=== PATIENT | female | born 1945 | race Caucasian/White ===

== ENCOUNTER 2017-03-05 10:02 | Day surgery (SDC) | payer OTHER ==
[~2017-03-05 10:02] MED LIST: Acetaminophen TAB* 325 MG PO PRN; Buffered Lidocaine 0.9% SYRIN* 5 ML/SYR SYRINGE INTRADERM ONE
[2017-03-05] MEDS ORDERED: Midazolam* 1 MG/ML 2 ML VIAL (2 MG) ONE (11:10)
[2017-03-05 11:39] VITALS: BP 116/54
--- NOTE | 2017-03-05 13:19 | OP ---
DATE OF OPERATION/DATE OF DICTATION: 03/05/2017. DATE OF : 1945. SURGEON: Dr. Everton Davis. ROOFING FOREMAN: None. ANESTHESIA: Topical with intravenous sedation. PRE-OP DIAGNOSIS: Cataract, left eye. POST-OP DIAGNOSIS: Cataract, left eye. OPERATIVE PROCEDURE: Phacoemulsification and cataract extraction with posterior chamber intraocular lens implant, left eye. COMPLICATIONS: None. BLOOD LOSS: None. OPERATIVE FINDINGS: The patient was brought to the operating room and received a small amount of int ravenous sedation. A drop of Tetracaine was placed in her left eye. She was prepped and draped in t he usual sterile fashion for ophthalmic surgery and attention was directed to the left eye where a sp eculum was placed. A paracentesis was created at the 5 o'clock position and 0.1 cc of 1 percent pres ervative-free Lidocaine was injected into the anterior chamber followed by DisCoVisc. The eye was di gitally stabilized while a 2.75 mm keratome was used to create a triplanar clear corneal incision at the 3 o'clock position. A continuous curvilinear capsulorrhexis was created with a cystotome and Utr nancy forceps. BSS on a cannula was used to hydrodissect the lens from the capsule. Phacoemulsificati on was performed in a [id number] technique to create four fragments which were removed. Resi dual cortical material was removed with irrigation and aspiration. DisCoVisc was used to inflate the capsular bag and an AUOOTO 19.5 diopter lens was folded and inserted into the capsular bag. DisCoVis c was removed using irrigation and aspiration. BSS on a cannula was used to hydrate the corneal stro ma and seal the wound. At the end of the case the pupil was round and the lens was centered. The eye was of normal pressure and the wound was water tight. The speculum was removed and topical Maxitrol ointment was placed on the surface of the eye. The eye was closed, patched and shielded and the pat ient was sent to the recovery room in stable condition with post operative instructions and follow-up appointment given. [id number]/[facility] #: [id number]
[2017-03-05] MEDS ORDERED: Neomycin/Polymy/Dex OPHTH.OIN* 3.5 GM ONE (15:03)
[2017-03-05] MEDS ORDERED: Tetracaine 0.5% OPTH.SOL 4 ML* 1 DROP BTL ONE (15:03)
[2017-03-05] MEDS ORDERED: Phenylephrine 2.5% OPTH.SOL* 2 ML BTL ONE (15:03)
[2017-03-05] MEDS ORDERED: Tropicamide 1% OPTH.SOL* BTL ONE (15:03)
[2017-03-05] MEDS ORDERED: Lidocaine 1% MPF* 2 ML VIAL ONE (15:03)
[2017-03-05] MEDS ORDERED: Ketorolac 0.5% OPHTH (NF) 0.5 % 5 ML BTL ONE (15:03)
[2017-03-05] MEDS ORDERED: Cyclopentolate 1% OPTH.SOL* 2 ML BTL ONE (15:03)
[2017-03-05] MEDS ORDERED: Buffered Lidocaine 0.9% SYRIN* 5 ML/SYR SYRINGE ONE (15:03)
== END 2017-03-05 11:24 | disposition home or self-care (01) ==
LOC: OREAST 10:02
PROVIDERS: ATTEND Ophthalmology
DX: H25.12 Age-related nuclear cataract, left eye (principal); E11.9 Type 2 diabetes mellitus without complications; Z79.84 Long term (current) use of oral hypoglycemic drugs; E78.5 Hyperlipidemia, unspecified; F33.9 Major depressive disorder, recurrent, unspecified; K21.9 Gastro-esophageal reflux disease without esophagitis; M19.90 Unspecified osteoarthritis, unspecified site
CPT/HCPCS: A9270-GY; J2250; V2632

== ENCOUNTER 2017-03-12 12:22 | Day surgery (SDC) | payer OTHER ==
[2017-03-12] MEDS ORDERED: Midazolam* 1 MG/ML 5 ML VIAL (5 MG) ONE (14:04)
[2017-03-12] MEDS ORDERED: fentaNYL* 50 MCG/ML 2 ML VIAL (100 MCG VIAL) ONE (14:04)
[2017-03-12 16:00] VITALS: BP 111/59
--- NOTE | 2017-03-12 16:46 | OP ---
DATE OF OPERATION/DATE OF DICTATION: 03/12/2017 - [facility] DATE OF : 1945. SURGEON: Dr. Everton Davis. DIRECTOR BUSINESS INTELLIGENCE: None. ANESTHESIOLOGIST: Jim Padilla MD ANESTHESIA: Topical with intravenous sedation. PRE-OP DIAGNOSIS: Cataract, right eye. POST-OP DIAGNOSIS: Cataract, right eye. OPERATIVE PROCEDURE: Phacoemulsification and cataract extraction with posterior chamber intraocular lens implant, right eye. COMPLICATIONS: None. BLOOD LOSS: None. DESCRIPTION OF PROCEDURE: The patient was brought to the operating room and received a small amount of intra-venous sedation. A drop of Tetracaine was placed in her right eye. She was prepped and draped in the usual sterile fashion for ophthalmic surgery and attention was directed to the right eye where a speculum was placed. A paracentesis was created at the 11 o'clock position and 0.1 cc of 1 percent preservative-free Lidocaine was injected into the anterior chamber followed by DisCoVisc. The eye was digitally stabilized while a 2.75 mm keratome was used to create a triplanar clear corneal incision at the 9 o'clock position. A continuous curvilinear capsulorrhexis was created with a cystotome and Utrata forceps. BSS on a cannula was used to hydrodissect the lens from the capsule. Phacoemulsification was performed in a divide-and- conquer technique to create four fragments which were removed. Residual cortical material was removed with irrigation and aspiration. DisCoVisc was used to inflate the capsular bag and an AUOOTO 21.0 diopter lens was folded and inserted into the capsular bag. DisCoVisc was removed using irrigation and aspiration. BSS on a cannula was used to hydrate the corneal stroma and seal the wound. At the end of the case the pupil was round and the lens was centered. The eye was of normal pressure and the wound was water tight. The speculum was removed and topical Maxitrol ointment was placed on the surface of the eye. The eye was closed, patched and shielded and the patient was sent to the recovery room in stable condition with post operative instructions and follow-up appointment given. [id number]/[facility] #: [id number] [facility] CENTERSheng
== END 2017-03-12 15:54 | disposition home or self-care (01) ==
LOC: OREAST 12:22
PROVIDERS: ATTEND Ophthalmology
DX: H25.11 Age-related nuclear cataract, right eye (principal); H40.9 Unspecified glaucoma; F33.9 Major depressive disorder, recurrent, unspecified; F41.1 Generalized anxiety disorder; K21.0 Gastro-esophageal reflux disease with esophagitis; E78.5 Hyperlipidemia, unspecified; R73.01 Impaired fasting glucose; Z79.82 Long term (current) use of aspirin; Z88.0 Allergy status to penicillin; Z88.8 Allergy status to other drugs, medicaments and biological substances; Z88.5 Allergy status to narcotic agent; Z88.2 Allergy status to sulfonamides; Z88.1 Allergy status to other antibiotic agents
CPT/HCPCS: J2250; J3010; V2632

== ENCOUNTER 2017-04-11 20:53 | Emergency (ER) | payer OTHER ==
--- NOTE | 2017-04-11 21:01 | UC ---
Laceration HPI - HPI Summary HPI Summary: 72 year old female presents with complains right wrist laceration. - History Of Current Complaint Stated Complaint: WRIST LACERATION Time Seen by Provider: 04/11/17 20:57 Hx Obtained From: Patient Laceration Location: Wrist - right Mechanism Of Injury: Sharp Trauma Onset/Duration: Sudden Onset Pain Scale Used: 0-10 Numeric - 5 - Allergies/Home Medications Allergies/Adverse Reactions: Allergies Allergy/AdvReac Type Severity Reaction Status Date / Time Adhesive Tape Allergy Rash Verified 04/11/17 21:00 Sulfa Antibiotics Allergy Rash Verified 03/12/17 13:46 PENICILLINS Allergy Hives Uncoded 03/12/17 13:46 PMH/Surg Hx/FS Hx/Imm Hx Previously Healthy: Yes - Surgical History Surgical History: Yes Surgery Procedure, Year, and Place: eye muscle age 12 - Family History Known Family History: Positive: None - Social History Alcohol Use: Occasionally Alcohol Amount: 1/3 bottle a week Substance Use Type: None Smoking Status (MU): Never Smoked Tobacco Review of Systems Constitutional: Negative Skin: Other - right wrist laceration Eyes: Negative ENT: Negative Respiratory: Negative Cardiovascular: Negative Gastrointestinal: Negative Genitourinary: Negative Motor: Negative Neurovascular: Negative Musculoskeletal: Negative Neurological: Negative Psychological: Negative All Other Systems Reviewed And Are Negative: Yes Physical Exam Triage Information Reviewed: Yes Vital Signs Reviewed: Yes Eye Exam: Normal ENT Exam: Normal Dental Exam: Normal Neck exam: Normal Neck: Positive: 1 Respiratory Exam: Normal Cardiovascular Exam: Normal Abdominal Exam: Normal Musculoskeletal Exam: Normal Neurological Exam: Normal Psychological Exam: Normal Skin: Positive: Other - right wrist laceration Laceration Repair - Laceration Repair 1 Description: Linear Laceration Size After Repair: Length (cm) - < 2.5 cm Modified For Repair: No Type Injection: Local Anesthesia Used: 1.0% Lido Cleansing Completed Via Routine Prep: Yes Closure Material: Sutures - 1 Closure Method: Single Layer Suture Of: Skin Suture Type: Prolene - 4.0 Laceration Course/Dx - Differential Dx - Laceration/Wound Provider Diagnoses: left wrist laceration < 2.5 cm Discharge - Discharge Plan Condition: Stable Disposition: HOME Prescriptions: DOXYcycline CAP(*) [DOXYcycline 100MG CAP(*)] 100 mg PO BID #14 cap Patient Education Materials: Laceration (ED) Referrals: Judi Hastings MD [Primary Care Provider] -
[2017-04-11] MEDS ORDERED: Tetan/Diph/Pertus SYR(Tdap)* 0.5 ML SYR(BOOSTRIX) use SYR IM ONE (21:02)
[2017-04-11] MEDS ORDERED: Lidocaine 1% MPF* 2 ML VIAL INJ ONE ×2 (21:02)
[2017-04-11 21:09] VITALS: BP 131/73
[2017-04-11] MEDS ORDERED: DOXYcycline CAP(*) 100 MG PO ONE (21:27)
== END 2017-04-11 21:40 | disposition home or self-care (01) ==
LOC: UCEAST 20:53
DX: S61.511A Laceration without foreign body of right wrist, initial encounter (principal); Z88.0 Allergy status to penicillin; Z88.2 Allergy status to sulfonamides; Z91.09 Other allergy status, other than to drugs and biological substances; W26.9XXA Contact with unspecified sharp object(s), initial encounter; Y92.9 Unspecified place or not applicable
CPT/HCPCS: 12001; 99212; A9270-GY; G0463

== ENCOUNTER 2017-04-13 16:12 | Emergency (ER) | payer OTHER ==
[2017-04-13 16:38] VITALS: BP 117/52
--- NOTE | 2017-04-13 17:06 | UC ---
HPI Wound/Suture Re-check - HPI Summary HPI Summary: 72 year old female presents for right wrist suture/wound recheck. - History Of Current Complaint Chief Complaint: UCRespiratory Stated Complaint: RECHECK SUTURES Time Seen by Provider: 04/13/17 17:06 Hx Obtained From: Patient Onset/Duration: Sudden Onset Severity: Moderate - Allergies/Home Medications Allergies/Adverse Reactions: Allergies Allergy/AdvReac Type Severity Reaction Status Date / Time Adhesive Tape Allergy Rash Verified 04/13/17 16:38 Sulfa Antibiotics Allergy Rash Verified 04/13/17 16:38 PENICILLINS Allergy Hives Uncoded 04/13/17 16:38 PMH/Surg Hx/FS Hx/Imm Hx Previously Healthy: Yes - Surgical History Surgical History: Yes Surgery Procedure, Year, and Place: eye muscle age 12 - Family History Known Family History: Positive: None - Social History Alcohol Use: Occasionally Alcohol Amount: 1/3 bottle a week Substance Use Type: None Smoking Status (MU): Never Smoked Tobacco - Immunization History Most Recent Influenza Vaccination: 2016 Most Recent Tetanus Shot: pt states 2-3 years ago Review of Systems Constitutional: Negative Skin: Other - right wirst suture/wound recheck Eyes: Negative ENT: Negative Respiratory: Negative Cardiovascular: Negative Gastrointestinal: Negative Genitourinary: Negative Motor: Negative Neurovascular: Negative Musculoskeletal: Negative Neurological: Negative Psychological: Negative All Other Systems Reviewed And Are Negative: Yes Physical Exam Triage Information Reviewed: Yes Vital Signs: Initial Vital Signs Temp 36.7 C 04/13/17 16:34 Pulse 80 04/13/17 16:34 Resp 14 04/13/17 16:34 BP 117/52 04/13/17 16:34 Pulse Ox 100 04/13/17 16:34 Vital Signs Reviewed: Yes Eye Exam: Normal ENT Exam: Normal Dental Exam: Normal Neck exam: Normal Neck: Positive: 1 Respiratory Exam: Normal Cardiovascular Exam: Normal Abdominal Exam: Normal Musculoskeletal Exam: Normal Neurological Exam: Normal Psychological Exam: Normal Skin: Positive: Other - right wrist suture/laceration check Course/Dx - Differential Dx - Laceration/Wound Provider Diagnoses: right suture/wound recheck Discharge - Discharge Plan Condition: Stable Disposition: HOME Patient Education Materials: Care For Your Stitches (ED) Referrals: Judi Hastings MD [Primary Care Provider] -
== END 2017-04-13 17:15 | disposition home or self-care (01) ==
LOC: UCEAST 16:12
DX: S61.511D Laceration without foreign body of right wrist, subsequent encounter (principal); X58.XXXD Exposure to other specified factors, subsequent encounter; Y92.9 Unspecified place or not applicable; Z88.0 Allergy status to penicillin; Z88.1 Allergy status to other antibiotic agents
CPT/HCPCS: 99213; G0463

== ENCOUNTER 2020-07-20 00:35 | Inpatient (IN) ==
[2020-07-20 01:18] LABS: ABS Eosinophils 0.1 10^3/ul (0-0.6); ABS Lymphocytes 0.4 10^3/ul (1.0-4.8); ABS Monocytes 0.4 10^3/ul (0-0.8); ABS Neutrophils 6.6 10^3/ul (1.5-7.7); Eosinophil % 0.9 %; Hematocrit 39 % (35-47); Hemoglobin 13.3 g/dL (12.0-16.0); Lymphocyte % 5.4 %; Mean Corpuscular HGB Conc 34 g/dL (31-36); Mean Corpuscular Hemoglobin 32 pg (27-31); Mean Corpuscular Volume 93 fL (80-97); Mean Platelet Volume 6.8 fL (7.4-10.4); Platelet Count 299 10^3/uL (150-450); Red Blood Count 4.17 10^6 /uL (3.70-4.87); Red Cell Distribution Width 13 % (10-15); White Blood Count 7.5 10^3/uL (3.5-10.8)
[2020-07-20 01:29] LABS: INR 1.03 (0.82-1.09)
[2020-07-20 01:34] LABS: Albumin 4.4 g/dL (3.2-5.2); Albumin/Globulin Ratio 1.6 (1-3); BUN/Creatinine Ratio 22.4 (8-20); C Reactive Protein 32.29 mg/L (<8.01); Calcium 9.3 mg/dL (8.6-10.3); EGFR African American 78.5 (>60); EGFR Non-African American 64.9 (>60); Globulin 2.8 g/dL (2-4); Total Bilirubin 0.5 mg/dL (0.2-1.0); Total Protein 7.2 g/dL (6.4-8.9)
[2020-07-20] MEDS ORDERED: levETIRAcetam 1000MG IVPREMIX 1,000 MG/100 ML BAG IVPB ONE (02:32)
[2020-07-20] MEDS ORDERED: cefTRIAXone 2 GM ADDV.VIAL 2 GM in NS 0.9% 100 ml BAG 100 ML IVPB ONE (03:46)
[2020-07-20] MEDS ORDERED: levETIRAcetam 500 MG IVPREMIX 500 MG/100 ML BAG IVPB ONE (05:27)
[2020-07-20 05:53] LABS: ABS Lymphocytes 0.5 10^3/ul (1.0-4.8); ABS Monocytes 0.3 10^3/ul (0-0.8); Eosinophil % 0.3 %; Hematocrit 38 % (35-47); Hemoglobin 12.9 g/dL (12.0-16.0); Lymphocyte % 7.3 %; Mean Corpuscular HGB Conc 34 g/dL (31-36); Mean Corpuscular Hemoglobin 32 pg (27-31); Mean Corpuscular Volume 94 fL (80-97); Mean Platelet Volume 6.7 fL (7.4-10.4); Nucleated Red Blood Cells % 0.1; Platelet Count 296 10^3/uL (150-450); Red Blood Count 4.03 10^6 /uL (3.70-4.87); Red Cell Distribution Width 13 % (10-15); White Blood Count 6.9 10^3/uL (3.5-10.8)
[2020-07-20 06:09] LABS: BUN/Creatinine Ratio 22.8 (8-20); Calcium 8.9 mg/dL (8.6-10.3); EGFR African American 85.4 (>60); EGFR Non-African American 70.6 (>60); Potassium 4.1 mmol/L (3.5-5.0)
[2020-07-20 06:30] LABS: INR 1.08 (0.82-1.09)
[2020-07-20] MEDS ORDERED: NS 0.9% 1,000 ML IV SCH (06:30)
[2020-07-20] MEDS ORDERED: Clindamycin 900 MG/D5W BAG 900 MG/50 ML BAG IVPB ONE (09:00)
[2020-07-20] MEDS ORDERED: Rocuronium 50 mg VIAL 10 mg/ml 5 ml VIAL (50 mg) ONE ×2 (11:45→13:56)
[2020-07-20] MEDS ORDERED: fentaNYL 250 mcg/5 ml 50 MCG/ML 5 ml VIAL (250 MCG) ONE (11:45)
[2020-07-20] MEDS ORDERED: Lidocaine 2% PF 5 ML VIAL ONE (11:45)
[2020-07-20] MEDS ORDERED: Propofol 10 MG/ML 20 ML BTL ONE ×2 (11:45→12:03)
[2020-07-20] MEDS ORDERED: Mannitol 25% (12.5 GM) 50 ML 12.5 GM/50 ML VIAL ONE (11:53)
[2020-07-20] MEDS ORDERED: niCARdipine 0.1MG/ML IVPREMIX 0 MG/0 ML BAG IV ONE (11:54)
[2020-07-20] MEDS ORDERED: Phenylephrine IV 10 MG/ML 1 ml VIAL ONE (11:56)
[2020-07-20] MEDS ORDERED: Thrombin 5,000 UNITS 1 APPLIC KIT - topical use - TOPICAL ONE (12:04)
[2020-07-20] MEDS ORDERED: Bacitracin OINTMENT TUBE ONE (12:05)
[2020-07-20] MEDS ORDERED: Bacitracin INJECTION 50,000 UNITS ONE (12:05)
[2020-07-20] MEDS ORDERED: Gelfoam Sponge SIZE 100 SPONGE ONE (12:05)
[2020-07-20] MEDS ORDERED: levETIRAcetam 500 MG IVPREMIX 500 MG/100 ML BAG IV SCH (14:30)
[2020-07-20] MEDS ORDERED: EPHEDrine (Pressors) 50 MG/ML VIAL ONE (15:04)
[2020-07-20] MEDS ORDERED: DiMENhydriNATE IV 50 mg/ml 1 ml VIAL ONE (16:17)
[2020-07-20] MEDS ORDERED: Ondansetron 4 mg VIAL 2 MG/ML 2 ml VIAL ONE (16:18)
[2020-07-20] MEDS ORDERED: hydrALAZINE 20 mg/ml 1 ML Vial IV IV SLOW PU PRN (18:08)
[2020-07-20] MEDS ORDERED: Ondansetron 4 mg VIAL 2 MG/ML 2 ml VIAL IV PRN (18:11)
[2020-07-20] MEDS: levETIRAcetam 500 MG IVPREMIX 500 MG/100 ML BAG IV SCH (20:22)
[2020-07-20] MEDS: Clindamycin 900 MG/D5W BAG 900 MG/50 ML BAG IVPB SCH (20:47)
[2020-07-20] MEDS ORDERED: niCARdipine 0.1MG/ML IVPREMIX 20 MG/200 ML BAG IV ONE (20:47)
[2020-07-20] MEDS ORDERED: niCARdipine 0.1MG/ML IVPREMIX 20 MG/200 ML BAG IV SCH ×2 (21:00→21:23)
[2020-07-20 22:19] LABS: Urine Appearance Clear; Urine Bilirubin Negative (Negative); Urine Blood 1+ (Negative); Urine Color Straw; Urine Glucose Negative (Negative); Urine Ketones Trace (Negative); Urine Nitrite Negative (Negative); Urine Protein Negative (Negative); Urine Urobilinogen Negative (Negative)
[2020-07-20 22:22] LABS: Urine Bacteria Absent (Absent); Urine Red Blood Cell Trace(0-2/hpf) (Absent); Urine Squamous Epithelial Cell Present (Absent); Urine White Blood Cell Trace(0-5/hpf) (Absent)
[2020-07-21] MEDS ORDERED: Morphine 2 MG/ML SYRINGE IV PRN (00:16)
[2020-07-21 04:29] LABS: ABS Basophils 0.1 10^3/ul (0-0.2); ABS Eosinophils 0.1 10^3/ul (0-0.6); ABS Lymphocytes 0.6 10^3/ul (1.0-4.8); ABS Monocytes 0.7 10^3/ul (0-0.8); ABS Neutrophils 5.7 10^3/ul (1.5-7.7); Eosinophil % 0.9 %; Hematocrit 32 % (35-47); Hemoglobin 10.8 g/dL (12.0-16.0); Lymphocyte % 8.9 %; Mean Corpuscular HGB Conc 34 g/dL (31-36); Mean Corpuscular Hemoglobin 32 pg (27-31); Mean Corpuscular Volume 93 fL (80-97); Mean Platelet Volume 6.4 fL (7.4-10.4); Platelet Count 273 10^3/uL (150-450); Red Blood Count 3.37 10^6 /uL (3.70-4.87); Red Cell Distribution Width 13 % (10-15); White Blood Count 7.2 10^3/uL (3.5-10.8)
[2020-07-21 04:45] LABS: BUN/Creatinine Ratio 13.2 (8-20); Calcium 7.8 mg/dL (8.6-10.3); EGFR African American 101.5 (>60); EGFR Non-African American 83.9 (>60); Potassium 3.7 mmol/L (3.5-5.0)
[2020-07-21] MEDS: Clindamycin 900 MG/D5W BAG 900 MG/50 ML BAG IVPB SCH ×3 (05:17→20:12)
[2020-07-21 05:35] LABS: Calcium 7.8 mg/dL (8.6-10.3)
[2020-07-21 05:41] LABS: Phosphorus 3.5 mg/dL (2.5-5.0)
[2020-07-21] MEDS: Polyethylene Glycol 3350 17 GM PACKET PO SCH (08:27)
[2020-07-21] MEDS: Magnesium Hydroxide LIQ 30 ML UDC PO SCH (08:27)
[2020-07-21] MEDS: levETIRAcetam 500 MG IVPREMIX 500 MG/100 ML BAG IV SCH (09:27)
[2020-07-22 05:20] LABS: ABS Basophils 0.1 10^3/ul (0-0.2); ABS Eosinophils 0.2 10^3/ul (0-0.6); ABS Monocytes 0.6 10^3/ul (0-0.8); Eosinophil % 2.4 %; Hematocrit 32 % (35-47); Hemoglobin 11.1 g/dL (12.0-16.0); Lymphocyte % 15.3 %; Mean Corpuscular HGB Conc 34 g/dL (31-36); Mean Corpuscular Hemoglobin 32 pg (27-31); Mean Corpuscular Volume 94 fL (80-97); Mean Platelet Volume 6.4 fL (7.4-10.4); Nucleated Red Blood Cells % 0.1; Platelet Count 272 10^3/uL (150-450); Red Blood Count 3.46 10^6 /uL (3.70-4.87); Red Cell Distribution Width 13 % (10-15); White Blood Count 6.8 10^3/uL (3.5-10.8)
[2020-07-22] MEDS: Clindamycin 900 MG/D5W BAG 900 MG/50 ML BAG IVPB SCH ×3 (05:33→21:12)
[2020-07-22 05:38] LABS: BUN/Creatinine Ratio 14.3 (8-20); Calcium 8.3 mg/dL (8.6-10.3); EGFR African American 98.2 (>60); EGFR Non-African American 81.1 (>60); Magnesium 2.2 mg/dL (1.9-2.7); Phosphorus 2.7 mg/dL (2.5-5.0); Potassium 3.7 mmol/L (3.5-5.0)
[2020-07-22] MEDS: Enoxaparin 40 MG/0.4 ML SYR SUBCUT SCH (08:41)
[2020-07-22] MEDS: Magnesium Hydroxide LIQ 30 ML UDC PO SCH (08:41)
[2020-07-22] MEDS: Polyethylene Glycol 3350 17 GM PACKET PO SCH (08:41)
[2020-07-22] MEDS: CMC: Pravastatin 20 mg TAB (NF) PO SCH (21:12)
[2020-07-23] MEDS: Clindamycin 900 MG/D5W BAG 900 MG/50 ML BAG IVPB SCH ×3 (05:19→22:10)
[2020-07-23 05:43] LABS: ABS Eosinophils 0.2 10^3/ul (0-0.6); ABS Lymphocytes 1.1 10^3/ul (1.0-4.8); ABS Monocytes 0.4 10^3/ul (0-0.8); ABS Neutrophils 4.6 10^3/ul (1.5-7.7); Eosinophil % 2.9 %; Hematocrit 34 % (35-47); Hemoglobin 11.5 g/dL (12.0-16.0); Lymphocyte % 17.4 %; Mean Corpuscular HGB Conc 34 g/dL (31-36); Mean Corpuscular Hemoglobin 31 pg (27-31); Mean Corpuscular Volume 94 fL (80-97); Mean Platelet Volume 6.4 fL (7.4-10.4); Platelet Count 314 10^3/uL (150-450); Red Blood Count 3.67 10^6 /uL (3.70-4.87); Red Cell Distribution Width 13 % (10-15); White Blood Count 6.3 10^3/uL (3.5-10.8)
[2020-07-23 05:58] LABS: BUN/Creatinine Ratio 11.8 (8-20); Calcium 8.6 mg/dL (8.6-10.3); EGFR African American 101.5 (>60); EGFR Non-African American 83.9 (>60); Magnesium 2.1 mg/dL (1.9-2.7); Phosphorus 2.7 mg/dL (2.5-5.0); Potassium 3.7 mmol/L (3.5-5.0)
[2020-07-23] MEDS ORDERED: hydrALAZINE 20 mg/ml 1 ML Vial IV IV SLOW PU PRN (07:59)
[2020-07-23] MEDS: Cholecalciferol (VIT D3) 1,000 unit TAB PO SCH (08:58)
[2020-07-23] MEDS: Multivitamins/Minerals TAB PO SCH (08:58)
[2020-07-23] MEDS: Enoxaparin 40 MG/0.4 ML SYR SUBCUT SCH (08:59)
[2020-07-23] MEDS: Calcium Carb (TUMS) 500 mg CHEW TAB PO SCH (08:59)
[2020-07-23] MEDS ORDERED: METFORMIN 500 MG PO SCH (09:00)
[2020-07-23] MEDS: Polyethylene Glycol 3350 17 GM PACKET PO SCH (09:00)
[2020-07-23] MEDS: Magnesium Hydroxide LIQ 30 ML UDC PO SCH (09:00)
[2020-07-23] MEDS: CMC: Pravastatin 20 mg TAB (NF) PO SCH (22:11)
[2020-07-24] MEDS: Clindamycin 900 MG/D5W BAG 900 MG/50 ML BAG IVPB SCH ×2 (06:13→12:45)
[2020-07-24] MEDS: Multivitamins/Minerals TAB PO SCH (10:32)
[2020-07-24] MEDS: Cholecalciferol (VIT D3) 1,000 unit TAB PO SCH (10:32)
[2020-07-24] MEDS: Calcium Carb (TUMS) 500 mg CHEW TAB PO SCH (10:32)
[2020-07-24] MEDS: Enoxaparin 40 MG/0.4 ML SYR SUBCUT SCH (10:32)
[2020-07-24] MEDS: Magnesium Hydroxide LIQ 30 ML UDC PO SCH (10:36)
[2020-07-24 12:29] LABS: ABS Basophils 0.1 10^3/ul (0-0.2); ABS Eosinophils 0.2 10^3/ul (0-0.6); ABS Monocytes 0.6 10^3/ul (0-0.8); ABS Neutrophils 5.8 10^3/ul (1.5-7.7); Eosinophil % 2.5 %; Hematocrit 33 % (35-47); Hemoglobin 11.2 g/dL (12.0-16.0); Lymphocyte % 12.6 %; Mean Corpuscular HGB Conc 34 g/dL (31-36); Mean Corpuscular Hemoglobin 32 pg (27-31); Mean Corpuscular Volume 93 fL (80-97); Mean Platelet Volume 6.3 fL (7.4-10.4); Platelet Count 368 10^3/uL (150-450); Red Blood Count 3.52 10^6 /uL (3.70-4.87); Red Cell Distribution Width 13 % (10-15); White Blood Count 7.5 10^3/uL (3.5-10.8)
[2020-07-24 12:44] LABS: Calcium 8.7 mg/dL (8.6-10.3); EGFR African American 99.8 (>60); EGFR Non-African American 82.5 (>60); Potassium 3.8 mmol/L (3.5-5.0)
[2020-07-24] MEDS: CMC: Pravastatin 20 mg TAB (NF) PO SCH (19:57)
[2020-07-25 07:35] VITALS: BP 138/66
[2020-07-25] MEDS: Cholecalciferol (VIT D3) 1,000 unit TAB PO SCH (08:50)
[2020-07-25] MEDS: Enoxaparin 40 MG/0.4 ML SYR SUBCUT SCH (08:50)
[2020-07-25] MEDS: Multivitamins/Minerals TAB PO SCH (08:50)
[2020-07-25] MEDS: Calcium Carb (TUMS) 500 mg CHEW TAB PO SCH (08:50)
== END 2020-07-25 12:20 | disposition home or self-care (01) | DRG 27 ==
LOC: ED 00:35 → ICU 03:47 → SSU 07-23 15:37
PROVIDERS: ADMIT Internal Medicine; ATTEND Internal Medicine